=== PATIENT | female | born 1965 | race Caucasian/White ===

== ENCOUNTER 2018-08-27 13:53 | Emergency (ER) | payer MEDICARE, OTHER ==
[~2018-08-27] VITALS: Ht 157.5 cm; Wt 57.3 kg
[2018-08-27 14:03] VITALS: BP 137/110
[2018-08-27] MEDS ORDERED: LORazepam 0.5 MG tablet PO ONE (14:40)
== END 2018-08-27 14:54 | disposition home or self-care (01) ==
LOC: ER 13:56
DX: S09.90XA Unspecified injury of head, initial encounter (principal); Z56.0 Unemployment, unspecified; Z88.6 Allergy status to analgesic agent; X58.XXXA Exposure to other specified factors, initial encounter; Y93.89 Activity, other specified; Y92.89 Other specified places as the place of occurrence of the external cause; Y99.8 Other external cause status
CPT/HCPCS: 99282

== ENCOUNTER 2018-10-29 06:13 | Emergency (ER) | payer OTHER ==
[~2018-10-29] VITALS: Ht 157.5 cm; Wt 42.6 kg
[2018-10-29 06:15] VITALS: BP 149/101
--- NOTE | 2018-10-29 06:22 | NUR ---
CALL PLACED TO [facility] CASE #[id number]
== END 2018-10-29 07:03 | disposition home or self-care (01) ==
LOC: ER 06:13
DX: S09.90XA Unspecified injury of head, initial encounter (principal); Z59.0 Homelessness; Z56.0 Unemployment, unspecified; Z88.5 Allergy status to narcotic agent; Y04.0XXA Assault by unarmed brawl or fight, initial encounter; Y93.89 Activity, other specified; Y92.89 Other specified places as the place of occurrence of the external cause; Y99.9 Unspecified external cause status
CPT/HCPCS: 99283

== ENCOUNTER 2018-10-30 14:03 | Emergency (ER) | payer OTHER ==
[~2018-10-30] VITALS: Ht 157.5 cm; Wt 54.5 kg
[2018-10-30 14:22] VITALS: BP 115/75
--- NOTE | 2018-10-30 14:45 | NUR ---
Attempted to discharge the pt. Stated that she needed to speak with social work associate to arrange for a "travel voucher and safe hotel room voucher". Home Inspector paged.
--- NOTE | 2018-10-30 15:06 | NUR ---
Samanta from [employer] came to consult with pt. Attempted consult with pt regarding safe discharge. Pt became agitated and ambulated out of the ED, yelling at staff "follow me to hell".
== END 2018-10-30 15:15 | disposition home or self-care (01) ==
LOC: ER 14:04
DX: S09.90XA Unspecified injury of head, initial encounter (principal); Z56.0 Unemployment, unspecified; Z59.0 Homelessness; Z88.6 Allergy status to analgesic agent; Y04.8XXA Assault by other bodily force, initial encounter; Y93.89 Activity, other specified; Y92.89 Other specified places as the place of occurrence of the external cause; Y99.8 Other external cause status
CPT/HCPCS: 99281; 99283

== ENCOUNTER 2019-07-02 20:30 | Emergency (ER) | payer OTHER ==
[~2019-07-02] VITALS: Ht 157.5 cm; Wt 52.0 kg
[2019-07-02 20:41] VITALS: BP 101/67
== END 2019-07-02 22:02 | disposition left against medical advice (07) ==
LOC: ER 20:31
DX: R51 Headache (principal); R07.81 Pleurodynia; F31.9 Bipolar disorder, unspecified; F20.9 Schizophrenia, unspecified; Z53.21 Procedure and treatment not carried out due to patient leaving prior to being seen by health care provider; Z59.0 Homelessness; Z56.0 Unemployment, unspecified; Z88.5 Allergy status to narcotic agent

== ENCOUNTER 2019-07-03 16:55 | Emergency (ER) | payer OTHER | END 2019-07-03 17:18 | disposition left against medical advice (07) | LOC: ER 16:56 | DX: R51 Headache (principal); Z53.21 Procedure and treatment not carried out due to patient leaving prior to being seen by health care provider ==